=== PATIENT | female | born 1975 | race Caucasian/White ===

== ENCOUNTER 2024-12-07 08:44 | Day surgery (SDC) | payer SELFPAY ==
[2024-12-04 10:55] VITALS: BMI 22.3
--- NOTE | 2024-12-07 07:49 | P.HP_ITS ---
History of Present Illness *Admission Date: 12/07/24 *History of present illness: Mrs. Sanches is a 49-year-old female who is here for diagnostic EGD secondary to GERD, belching, bloating and right upper quadrant abdominal pain. The examination is deemed medically necessary for diagnostic upper endoscopy. The patient has been seen, interviewed and examined prior to the procedure by both myself and the anesthesia provider. [facility] Disclaimer: The information contained in this section may have been updated after the patient was seen, as this information can be updated by other users. Medical History No active medical problems Surgical History History of bilateral breast reduction surgery Family History Mother Cancer colon cancer Sister Hormone disorder Social History Smoking Status: Current some day smoker alcohol intake: current alcohol intake frequency: holidays/special occasions only substance use type: denies use current occupational status: employed Travel in the last 8 weeks?: None household members: spouse housing: house marital status: Have you lived/traveled outside [place] in past 30 days?: No Contact w/someone who lives/traveled outside US past 30 days?: No Exposure to someone with infectious disease in past 14 days?: No Do you have a fever (greater than 100.4 F or 38 C)?: No Have you tested positive for COVID-19?: No Exposed to someone with COVID-19 in past 14 days?: No Do you have a sore throat?: No Do you have a cough?: No Do you have any weakness?: No Do you have any diarrhea?: No Are you experiencing any unusual bleeding?: No Do you have any muscle aches/pain?: No Do you have any abdominal pain?: No Are you experiencing loss of taste or smell?: No Other Medical History Have you received the Pneumonia Vaccine: No Review of Systems Review of Systems Review of systems (narrative): Negative *Cardiovascular Comments: Negative *Gastrointestinal Comments: Negative *Genitourinary Comments: Negative *Musculoskeletal Comments: Negative *Neurologic Comments: Negative Meds Home Medications and Allergies Home Medications ?Medication ?Instructions ?Recorded ?Confirmed ?Type magnesium 200 mg tablet 200 mg PO DAILY 11/16/2404/20 History pantoprazole 40 mg tablet,delayed 40 mg PO DAILY #90 t abs 11/16/24 12/04/24 Rx release progesterone micronized 200 mg 200 mg PO DAILY 5 12/04/24 History capsule trazodone 50 mg tablet 25 mg (1/2 x 50 mg) PO DAILY PRN 11/16/24 12/04/24 Rx sleep #60 tabs New Prescriptions to Start Prescriptions: Allergies Allergy/AdvReac Type Severity Reaction Status Date / Time No Known Allergies Allergy Verified 11/16/24 10:36 Exam Data for Last 24 hours I & O for Last 24 hours: Intake & Output 12/04/24 12/05/24 12/06/24 12/07/24 23:59 23:59 23:59 23:59 Weight 160 lb *Routine HEENT Exam Head: Present normocephalic Eye: Present EOMI and PERRL ENT: Present mucous membranes moist *Routine Neck Exam Neck: Present supple *Routine Respiratory Exam Respiratory: Present CTA bilaterally *Routine Cardiovascular Exam Cardiovascular: Present RRR *Routine Abdominal Exam Abdominal: Present soft and normoactive bowel sounds; Absent tenderness *Routine Rectal Exam Rectal:: deferred *Routine Genitalia Exam Genitalia:: deferred *Routine Extremities Exam Extremities: Absent cyanosis, clubbing or edema *Routine Skin Exam Skin: Present warm; Absent rash *Routine Neurological Exam Neurological: Present alert and oriented X3 Assessment and Plan *Assessment and plan (1) Bloating: Status: Acute Category: Medical Code(s): R14.0 - Abdominal distension (gaseous) (2) Belching: Status: Acute Category: Medical Code(s): R14.2 - Eructation (3) Acid reflux: Status: Acute Category: Medical Code(s): K21.9 - Gastro-esophageal reflux disease without esophagitis (4) RUQ pain: Status: Acute Category: Medical Code(s): R10.11 - Right upper quadrant pain Plan A/P: 1. Right upper quadrant abdominal pain, reflux, belching and bloating is the preprocedural diagnosis. The patient will be anesthetized/sedated using MAC sedation. The patient has been seen and examined. Cardiac and lung assessment prior to the examination is stable. Proceed with planned diagnostic EGD.
[2024-12-07 09:13] VITALS: BP 137/75; PULSE 81; RESP 20; TEMP 36.3; O2SAT 98
[2024-12-07] MEDS: LIDOCAINE 2% VISCOUS SOL 15ML UDC 15 ML MM (09:32)
--- NOTE | 2024-12-07 09:41 | P.PCN_ITS ---
[facility] Procedure Note Date: 12/07/24 Time: 09:49 Procedure Note:: Upper Endoscopy Procedure Report: Esophagogastroduodenoscopy with cold biopsies Endoscopost: Celestino Ham II, MD Referring Physician: [facility] Date of Procedure: December 07, 2024 Equipment: Olympus GIF 190 standard upper endoscope Sedation: Viscous lidocaine and Cetacaine spray only Indications: Mrs. Sanches is a 49-year-old female who is here for diagnostic EGD secondary to intermittent right upper quadrant abdominal pain for years. She was diagnosed with an ulcer at age 15. The patient has never had an upper endoscopy. Her reflux has improved with pantoprazole. She did have a right upper quadrant abdominal ultrasound that was normal with normal gallbladder and liver. She does feel that eating can improve her symptoms. She does get some belching and bloating. She reports regular bowel function. She has no early satiety or dysphagia. She can get some nausea in the heat of the day. Procedure: Prior to the procedure, a history and physical exam was performed, and patient's medications and allergies were reviewed. The risks, benefits and alternatives of the sedation and procedure were discussed with the patient. All questions were answered and informed consent was obtained. The patient was brought to the procedure room. Patient identification and proposed procedure were verified by the physician and the nurse. The patient was placed in a left lateral decubitus position and the scope was passed under direct vision. Throughout the procedure, the patient's blood pressure, pulse, and oxygen saturations were monitored continuously. The upper GI endoscopy was accomplished without difficulty. The patient tolerated the procedure well. Findings: The scope was passed directly into the upper esophagus and advanced to the fourth portion of duodenum and proximal jejunum. A cold biopsy was taken from the proximal jejunum for the disaccharidase assay. The proximal jejunum, the post bulbar duodenum, ampulla and duodenal bulb were normal with normal mucosa and conniventes. The scope was withdrawn through a normal duodenal bulb and pylorus into the stomach. There was some linear reactive gastropathy of the antrum. A cold biopsy was obtained. There was mild chronic gastritis of the body and fundus and biopsies were taken along the lesser curvature for H. pylori. Upon retroflexion there was a small 2 cm hiatal hernia. The scope was then withdrawn into the esophagus. There was no evidence of reflux esophagitis. There was a single thin tongue of salmon-colored mucosa that was biopsied to rule out very short segment Morales's esophagus. There were mild tertiary contractions and evidence of mild esophageal dysmotility. The remainder of the esophageal mucosa was normal. Impression: 1. Nonerosive GERD with mild esophageal dysmotility and small 2 cm hiatal hernia 2. Mild linear reactive gastropathy of antrum and mild proximal chronic gastritis Plan: I will follow-up the biopsies to rule out H. pylori. I will also follow- up the disaccharidase assay. 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 Hepatic flexure syndrome is a term used to describe bloating, muscle spasms of the colon and upper abdominal pain on the right side and is thought to be caused by trapped gas and stool at the hepatic flexure/curvature of the colon which is in the right upper colon. The pain can be excruciating and debilitating. We will discuss treatment options.
[2024-12-07 09:53] VITALS: BP 162/92; PULSE 76; RESP 18; TEMP 36.8; O2SAT 97
[2024-12-07 10:15] VITALS: BP 157/84; PULSE 77; RESP 18; TEMP 36.8; O2SAT 96
[2024-12-10 16:12] LABS: Interpretation Notes (.); Lactase 31.78 (>/= 14.0); Maltase 296.79 (>/= 110.0); Palatinase 19.86 (>/= 8.5); Reference Notes (.); Sucrase 70.48 (>/= 25.0)
== END 2024-12-07 10:15 | disposition home or self-care (01) ==
PROVIDERS: Visit Provider Internal Medicine Gastroenterology
PROC: 0DJ08ZZ Inspection of Upper Intestinal Tract, Via Natural or Artificial Opening Endoscopic (ICD-10-PCS; CPT 43239; principal; 2024-12-07 10:00)
DX: K21.00 Gastro-esophageal reflux disease with esophagitis, without bleeding (principal); K44.9 Diaphragmatic hernia without obstruction or gangrene; K29.50 Unspecified chronic gastritis without bleeding; F17.200 Nicotine dependence, unspecified, uncomplicated; Z79.899 Other long term (current) drug therapy; K22.4 Dyskinesia of esophagus; K31.89 Other diseases of stomach and duodenum
CPT/HCPCS: 43239; 82657

== ENCOUNTER 2025-03-29 06:33 | Day surgery (SDC) | payer SELFPAY ==
--- NOTE | 2025-03-25 07:07 | P.HP_ITS ---
History of Present Illness *Admission Date: 03/29/25 *History of present illness: Mrs. Sanches is a 49-year-old female who is here for initial screening colonoscopy. Her mother had advanced colon cancer at the age of 63. The examination is deemed medically necessary for screening colonoscopy. The patie nt has been seen, interviewed and examined prior to the procedure by both myself and the anesthesia provider. [facility] Disclaimer: The information contained in this section may have been updated after the patient was seen, as this information can be updated by other users. Medical History No active medical problems Surgical History History of bilateral breast reduction surgery Family History Mother Cancer colon cancer Sister Hormone disorder Social History (Updated 03/29/25 @ 07:02 by Sandhya Raman RN) Smoking Status: Current some day smoker alcohol intake: current alcohol intake frequency: holidays/special occasions only substance use type: denies use current occupational status: employed Travel in the last 8 weeks?: None household members: spouse housing: house marital status: Have you lived/traveled outside [place] in past 30 days?: No Contact w/someone who lives/traveled outside US past 30 days?: No Exposure to someone with infectious disease in past 14 days?: No Do you have a fever (greater than 100.4 F or 38 C)?: No Have you tested positive for COVID-19?: No Exposed to someone with COVID-19 in past 14 days?: No Do you have a sore throat?: No Do you have a cough?: No Do you have any weakness?: No Are you experiencing any nausea/vomitting?: No Do you have any diarrhea?: No Are you experiencing any unusual bleeding?: No Do you have any muscle aches/pain?: No Do you have any abdominal pain?: No Are you experiencing loss of taste or smell?: No Other Medical History Have you received the Pneumonia Vaccine: No Review of Systems Review of Systems Review of systems (narrative): Negative *Cardiovascular Comments: Negative *Gastrointestinal Comments: Negative *Genitourinary Comments: Negative *Musculoskeletal Comments: Negative *Neurologic Comments: Negative Meds Home Medications and Allergies Home Medications ?Medication ?Instructions ?Recorded ?Confirmed ?Type magnesium 200 mg tablet 200 mg PO DAILY 11/16/2408/18 History progesterone micronized 200 mg 200 mg PO DAILY 5 03/29/25 History capsule trazodone 50 mg tablet 25 mg (1/2 x 50 mg) PO DAILY PRN 11/16/24 03/29/25 Rx sleep #60 tabs peg 3350-electrolytes 236 240 ml PO Q10M colonscopy #4 ,000 mL 03/15/25 03/29/25 Rx gram-22.74 gram-6.74 gram-5.86 gram solution (Golytely) New Prescriptions to Start Prescriptions: Allergies Allergy/AdvReac Type Severity Reaction Status Date / Time No Known Allergies Allergy Verified 03/29/25 07:01 Exam *Routine HEENT Exam Head: Present normocephalic Eye: Present EOMI and PERRL ENT: Present mucous membranes moist *Routine Neck Exam Neck: Present supple *Routine Respiratory Exam Respiratory: Present CTA bilaterally *Routine Cardiovascular Exam Cardiovascular: Present RRR *Routine Abdominal Exam Abdominal: Present soft and normoactive bowel sounds; Absent tenderness *Routine Rectal Exam Rectal:: deferred *Routine Genitalia Exam Genitalia:: deferred *Routine Extremities Exam Extremities: Absent cyanosis, clubbing or edema *Routine Skin Exam Skin: Present warm; Absent rash *Routine Neurological Exam Neurological: Present alert and oriented X3 Assessment and Plan *Assessment and plan (1) Screening for malignant neoplasm of colon: Status: Acute Category: Medical Code(s): Z12.11 - Encounter for screening for malignant neoplasm of colon (2) Family history of colon cancer in mother: Status: Acute Category: Medical Code(s): Z80.0 - Family history of malignant neoplasm of digestive organs Plan A/P: 1. Screening for colon cancer/initial screening and family history (mother with colon cancer) is the preprocedural diagnosis. The patient will be anesthetized/sedated using MAC sedation. The patient has been seen and examined. Cardiac and lung assessment prior to the examination is stable. Proceed with planned screening colonoscopy.
[2025-03-26 13:51] VITALS: BMI 20.2
--- NOTE | 2025-03-29 06:57 | P.PCN_ITS ---
[facility] Procedure Note Date: 03/29/25 Time: 08:03 Procedure Note:: Colonoscopy Procedure Report: Colonoscopy Endoscopist: Celestino Ham II, MD Referring physician: VAL Louis Date of Procedure: March 29, 2025 Equipment: Olympus [id number] adult colonoscope Sedation: No sedation Indication: Mrs. Sanches is a 49-year-old female who is here for initial screening colonoscopy. The patient has had some intermittent right upper quadrant abdominal pain and discomfort. The patient has taken Konsyl and Beano with no improvement. The patient reports no rectal bleeding, change in her bowel habits or weight loss. Her mother had advanced colon cancer in her mid 50s. The examination is deemed medically necessary for screening colonoscopy. Procedure: Prior to the procedure, a history and physical exam was performed, and patient's medications and allergies were reviewed. The risks, benefits and alternatives of the sedation and procedure were discussed with the patient. All questions were answered and informed consent was obtained. The patient was brought to the procedure room. Patient identification and proposed procedure were verified by the physician and the nurse. The patient was placed in a left lateral decubitus position and the scope was passed under direct vision. Throughout the procedure, the patient's blood pressure, pulse, and oxygen saturations were monitored continuously. The colonoscopy was accomplished without difficulty. The patient tolerated the procedure well. Findings: On digital rectal examination there was normal rectal tone. There were no external hemorrhoids. The colonoscope was introduced through the anal canal to the rectum and advanced to the cecum. The ileocecal valve and appendiceal orifice were identified. The scope was advanced a short distance into the ileum which appeared grossly normal. The scope was then withdrawn into the colon. The cecum, ascending, transverse, descending, sigmoid and rectum were grossly normal. There were no mucosal abnormalities identified. Upon retroflexion within the rectum there were grade 1-2 internal hemorrhoids. The preparation was excellent throughout with [place] Preparation Score of 9. The cecal time was 10 minutes. Impression: 1. Normal colonoscopy with intubation of the terminal ileum Plan: Based upon the patient's family history, I would recommend repeat screening/surveillance colonoscopy again in 5 years. I do feel that her right sided abdominal pain is likely functional abdominal pain/hepatic flexure syndrome. I will have her follow-up in the office again in 3 to 4 months.
[2025-03-29 07:02] VITALS: BP 131/87; PULSE 81; RESP 16; TEMP 37.2; O2SAT 99; BMI 20.2
[2025-03-29 08:11] VITALS: BP 135/80; PULSE 75; RESP 20; TEMP 36.6; O2SAT 96
[2025-03-29 08:13] VITALS: BP 135/80; PULSE 75; RESP 20; TEMP 36.6; O2SAT 96
== END 2025-03-29 08:11 | disposition home or self-care (01) ==
PROVIDERS: PCP Nurse Practitioner Family; Visit Provider Internal Medicine Gastroenterology
PROC: 0DJD8ZZ Inspection of Lower Intestinal Tract, Via Natural or Artificial Opening Endoscopic (ICD-10-PCS; CPT 45378; principal; 2025-03-29 08:00)
DX: K64.0 First degree hemorrhoids (principal); K64.1 Second degree hemorrhoids; F17.200 Nicotine dependence, unspecified, uncomplicated; Z12.11 Encounter for screening for malignant neoplasm of colon; Z80.0 Family history of malignant neoplasm of digestive organs
CPT/HCPCS: 45378